=== PATIENT | female | born 1985 | race Caucasian/White ===

== ENCOUNTER 2022-09-07 18:49 | Observation (INO) | payer OTHER ==
[~2022-09-07] VITALS: Ht 160 cm; Wt 80.8 kg
[2022-09-07 19:55] LABS: Source, Urine Clean Catch
[2022-09-07 19:58] LABS: BASOPHILS ABSOLUTE AUTO 0.12 K/mm3 (0.00-0.23); BASOPHILS PERCENT AUTO 1 % (0-2); EOSINOPHILS ABSOLUTE AUTO 0.29 K/mm3 (0.00-0.68); EOSINOPHILS PERCENT AUTO 2 % (0-6); Hematocrit 38.1 % (33.0-51.0); Hemoglobin 12.9 g/dL (11.5-16.0); IMMATURE GRAN ABSOLUTE AUTO 0.04 K/mm3 (0.00-0.10); IMMATURE GRAN PERCENT AUTO 0 % (0-1); LYMPHOCYTES ABSOLUTE AUTO 4.44 K/mm3 (0.84-5.20); LYMPHOCYTES PERCENT AUTO 36 % (21-46); MONOCYTES ABSOLUTE AUTO 0.64 K/mm3 (0.16-1.47); MONOCYTES PERCENT AUTO 5 % (4-13); Mean Corpuscular HGB 30.3 pg (26.0-34.0); Mean Corpuscular HGB Conc 33.9 g/dL (31.5-36.5); Mean Corpuscular Volume 89 fL (80-100); Mean Platelet Volume 10.6 fL (9.1-12.4); NEUTROPHILS ABSOLUTE AUTO 6.93 K/mm3 (1.96-9.15); NEUTROPHILS PERCENT AUTO 56 % (41-73); Platelet Count 312 K/mm3 (150-400); RDW Coefficient Variation 12.9 % (11.7-14.2); RDW Standard Deviation 42.1 fL (35.1-46.3); Red Blood Cell Count 4.26 M/mm3 (3.80-5.20); White Blood Cell Count 12.46 K/mm3 (4.00-11.30)
[2022-09-07 20:00] LABS: Appearance, Urine Clear (Clear); Bilirubin, Urine Neg (Neg); Blood, Urine 1+ (Neg); Color, Urine Yellow (P-Yellow); Glucose Qualitative, Urine 4+ (Neg); Ketones, Urine Neg (Neg); Leukocyte Esterase, Urine Neg (Neg); Nitrite, Urine Neg (Neg); Protein, Urine Neg (Neg); Specific Gravity, Urine 1.015 (1.003-1.022); Urobilinogen, Urine NORM (Normal); pH, Urine 6.5 (5.0-8.0)
[2022-09-07 20:10] LABS: Albumin, Blood 3.8 g/dL (3.4-5.0); Bilirubin, Total 0.3 mg/dL (0.1-1.0); Bun/Creatinine Ratio 15.8 (12.0-20.0); Calcium, Blood 9.6 mg/dL (8.5-10.1); Creatinine, Blood 0.63 mg/dL (0.40-1.00); Globulin, Blood 3.7 g/dL (2.2-4.0); Total Protein, Blood 7.5 g/dL (6.4-8.2)
[2022-09-07 20:14] LABS: Bacteria Rare /hpf; Red Blood Cells, Urine 0-2 /hpf (0-2); Squamous Epithelial Cells Few /hpf (Few); White Blood Cells, Urine Not Seen /hpf (0-5)
[2022-09-07] MEDS ORDERED: LIPITOR80 MG (23:21)
[2022-09-07] MEDS ORDERED: ALOGLIPTIN25 M7 (23:21)
[2022-09-07] MEDS ORDERED: METFORMIN HCL500 M2 (23:21)
[2022-09-07] MEDS ORDERED: PROZAC40 MG (23:21)
[2022-09-07] MEDS ORDERED: GLIP5ER (23:22)
[2022-09-08] VITALS (19 sets, daily range): BP systolic 95–131; BP diastolic 50–79
--- NOTE | 2022-09-08 00:55 | NUR ---
PT ADMIT PT ARRIVED TO ROOM VIA GURNEY W/ SPOUSE AT BEDSIDE, REPORTS 5/10 PAIN. MEDICATED W/ DILAUDID AND ZOFRAN. ASSESSMENT CHARTED, PT REPORTS DIABETIC W/ ORAL MEDS, NEUROPATHY TO BLLE AND FINGER TIPS. VARIOUS PSORIASIS SPOTS TO ELBOW, KNEE, ABD. WILL MONITOR FOR PAIN, N/V AND MEDICATE PER EMAR. PLANS FOR SURGERY TOMORROW.
--- NOTE | 2022-09-08 05:52 | NUR ---
SHIFT SUMMARY ER ADMIT FOR CHOLECYSTITIS, AWAITING SURGERY. NPO. VSS, 06/24 PAIN W/ GOOD RESULTS W/ FENTANYL 2X THIS SHIFT. A&OX4, INDEPENDANT IN ROOM/ BATHROOM. PT REPORTS OCCASIONAL NAUSEA AND N/T R/T DIABETIC NEUROPATHY, TYPE 2. NO ORDERS FOR HOME MEDS. IV FLUIDS CONTINUED. NO ACUTE CHANGES THIS SHIFT. CALL LIGHT W/IN REACH. WILL REPORT OFF TO ONCOMING SHIFT.
--- NOTE | 2022-09-08 08:25 | NUR ---
PATIENT TO IMAGING VIA W/C FOR CT SCAN.
--- NOTE | 2022-09-08 08:30 | NUR ---
IGNITION SOURCES PATIENT DENIES ANY SOURCE OF IGNITION PRESENT AT THIS TIME. DISCUSSED FIRE SAFETY IN HOSPITAL, PATIENT VERBALIZES UNDERSTANDING.
--- NOTE | 2022-09-08 10:45 | NUR ---
CALL TO MD NOTIFIED MD OF PATIENT'S CODE STATUS IN THE COMPUETER APPEARING DNI, THIS RN VERIFIED WITH PATIENT THAT SHE DOES INDEED WISH TO BE A FULL CODE. TELEPHONE ORDER RECEIVED TO CHANGE PATIENT CODE STATUS TO FULL CODE.
--- NOTE | 2022-09-08 11:30 | NUR ---
FAMILY TO PATIENTS ROOM. ALL FAMILY DENIES ANY IGNITION SOURCES PRESENT AT THIS TIME. EDUCATED ON FIRE SAFETY IN HOSPITAL, VERBALIZES UNDERSTANDING.
--- NOTE | 2022-09-08 14:00 | NUR ---
PATIENT TO DAY SURGERY VIA [facility]
--- NOTE | 2022-09-08 15:28 | NUR ---
HOSPITALIST CONSULT THIS RN NOTIFIED DR OBRIEN OF NEW HOSPITALIST CONSULT TO MANAGE PANCREATITIS & DIABETES, PER NURSE NOTIFY BY DR GRANT.
--- NOTE | 2022-09-08 19:00 | NUR ---
RETURN FROM PACU PT RETURNED VIA MEGHAN [place] DRAIN TO RUQ DRAINING SEROSANGUINOUS. PT REPORTS 3/10 PAIN AT THIS TIME. VSS, LUNGS CLEAR ALTHOUGH VERY SHALLOW. EDUCATED TO DEEP BREATH. WILL PROVIDE INCENTIVE SPIR.
--- NOTE | 2022-09-08 19:10 | NUR ---
DR GRANT IN TO SEE PT PT AND FAMILY UPDATED OF PROCEDURES PREFORMED AND INFORMED WILL REEVALUATE IN A.M.
--- NOTE | 2022-09-08 19:30 | NUR ---
DR. WILDER IN ROOM DR WILDER IN TO SEE PT/ FAMILY. DISCUSSED CONCERNS OF DIABETES AND INFORMED OF ORDERS TO MONITOR CBG'S AND MEDS.
[2022-09-09 02:48] VITALS: BP 121/67
--- NOTE | 2022-09-09 06:30 | NUR ---
SHIFT SUMMARY POD 1, CHOLECYSTECTOMY W/ MEGHAN DRAIN IN RUQ W/ 4 LAP SITES C/D. PT CONTINUES TO BE 08/24 AND RECEIVED IV PAIN MEDS X3 THIS SHIFT. VSS, CGB'S Q6 W/ 2U HUMULIN ADMINISTERED @0600 PER LOW SS. NO C/O NAUSEA. PT CONTINUES TO HAVE SHALLOW BREATHING R/T PAIN AND EDUCATED ON DEEP BREATHING AND CONTINUE USE OF INCENTIVE SPIROMETER. PT AWAITING AMBULATION THIS A.M. IN HOPES OF DISCHARGE TODAY. SPOUSE IN ROOM W/ PT.
--- NOTE | 2022-09-09 06:39 | NUR ---
NEW IV PLACED IV PLACED TO TOP OF LEFT HAND BY FAVIOLA BENAVIDEZ.
[2022-09-09 07:58] VITALS: BP 90/56
[2022-09-09] MEDS ORDERED: OXAYDO5 M2 PO (09:10)
[2022-09-09 09:41] VITALS: BP 126/85
--- NOTE | 2022-09-09 11:24 | NUR ---
DISCHARGE NOTE: PATIENT AND SIGNIFICANT OTHER WERE EDUCATED ON DISCHARGE INSTRUCTIONS AND MEGHAN DRAIN INSTRUCTIONS. BOTH VERBALIZED UNDERSTANDING OF INSTRUCTIONS AND HAD NO FURTHER QUESTIONS AT THIS TIME. PAIN PERSCRIPTION HER SIGNIFICANT OTHER HAS ALREADY FILLED OUT AT THEIR PREFERRED PHARMACY. PAIN IS MANAGED WITH ORAL PAIN MEDICATIONS. IV WAS TAKEN OUT AND WNL. HER ABD HAS THE 4 LAP SITES WITH WOUND GLUE THAT ARE C/D/I. DENIES NAUSEA AND VOMITING. HER MEGHAN DRAIN HAS TEGADERM DRESSING WITH CHG THAT IS ALSO C/D/I. BULB IS COMPRESSED AND HAS A SMALL AMOUNT OF LIGHT PINK OUTPUT. PATIENT IS DRESSED AND HAS PERSONAL ITEMS IN THE ROOM GATHERED. SHE IS TOLERATING PO INTAKE AND IS VOIDING WELL PASSING GAS. SHE IS BEING WHEELCHAIRED OUT TO HER SIGNIFICANT OTHERS CAR WHO WILL BE TAKING HER HOME.
== END 2022-09-09 11:30 | disposition home or self-care (01) ==
LOC: ER 18:49 → SURS 18:50
PROVIDERS: Student in an Organized Health Care Education/Training Program; Surgery; ADMIT Surgery
PROC: BF121ZZ Fluoroscopy of Gallbladder using Low Osmolar Contrast (ICD-10-PCS; principal; 2022-09-08 14:00)
PROC: 8E0W4CZ Robotic Assisted Procedure of Trunk Region, Percutaneous Endoscopic Approach (ICD-10-PCS; principal; 2022-09-08 14:00)
PROC: 0FT44ZZ Resection of Gallbladder, Percutaneous Endoscopic Approach (ICD-10-PCS; principal; 2022-09-08 14:00)
DX: K80.00 Calculus of gallbladder with acute cholecystitis without obstruction (principal); E11.9 Type 2 diabetes mellitus without complications; Z72.0 Tobacco use; Z88.5 Allergy status to narcotic agent; Z88.8 Allergy status to other drugs, medicaments and biological substances; K85.90 Acute pancreatitis without necrosis or infection, unspecified; K42.0 Umbilical hernia with obstruction, without gangrene
CPT/HCPCS: 36415; 74177; 76705; 80053; 81001; 82947; 83690; 85025; 88304; 96361; 96365; 96375; 96376; 99285-25; A9270; G0378; J1100; J1170; J1815; J1885; J2405; J2543; J2704; J3010; J7030; J7120; Q9967

== ENCOUNTER 2022-09-09 19:15 | Emergency (ER) | payer OTHER ==
[~2022-09-09] VITALS: Ht 160 cm; Wt 108.9 kg
[~2022-09-09 19:15] MED LIST: ALOGLIPTIN25 M7; GLIP5ER; LIPITOR80 MG; METFORMIN HCL500 M2; OXAYDO5 M2 PO; PROZAC40 MG
[2022-09-09 19:52] LABS: BASOPHILS ABSOLUTE AUTO 0.06 K/mm3 (0.00-0.23); BASOPHILS PERCENT AUTO 1 % (0-2); EOSINOPHILS ABSOLUTE AUTO 0.06 K/mm3 (0.00-0.68); EOSINOPHILS PERCENT AUTO 1 % (0-6); Hematocrit 36.6 % (33.0-51.0); Hemoglobin 12.2 g/dL (11.5-16.0); IMMATURE GRAN ABSOLUTE AUTO 0.04 K/mm3 (0.00-0.10); IMMATURE GRAN PERCENT AUTO 0 % (0-1); LYMPHOCYTES ABSOLUTE AUTO 3.76 K/mm3 (0.84-5.20); LYMPHOCYTES PERCENT AUTO 31 % (21-46); MONOCYTES ABSOLUTE AUTO 0.78 K/mm3 (0.16-1.47); MONOCYTES PERCENT AUTO 7 % (4-13); Mean Corpuscular HGB 30.3 pg (26.0-34.0); Mean Corpuscular HGB Conc 33.3 g/dL (31.5-36.5); Mean Corpuscular Volume 91 fL (80-100); Mean Platelet Volume 9.9 fL (9.1-12.4); NEUTROPHILS ABSOLUTE AUTO 7.39 K/mm3 (1.96-9.15); NEUTROPHILS PERCENT AUTO 61 % (41-73); Platelet Count 298 K/mm3 (150-400); RDW Coefficient Variation 12.9 % (11.7-14.2); RDW Standard Deviation 42.8 fL (35.1-46.3); Red Blood Cell Count 4.02 M/mm3 (3.80-5.20); White Blood Cell Count 12.09 K/mm3 (4.00-11.30)
[2022-09-09 20:20] LABS: Albumin, Blood 3.3 g/dL (3.4-5.0); Albumin/Globulin Ratio 0.9 (0.8-1.8); Bilirubin, Total 0.3 mg/dL (0.1-1.0); Bun/Creatinine Ratio 17.1 (12.0-20.0); Calcium, Blood 8.3 mg/dL (8.5-10.1); Creatinine, Blood 0.7 mg/dL (0.40-1.00); Globulin, Blood 3.6 g/dL (2.2-4.0); Potassium, Blood 3.6 mmol/L (3.5-5.5); Total Protein, Blood 6.9 g/dL (6.4-8.2)
[2022-09-09 21:45] VITALS: BP 134/83
== END 2022-09-09 22:26 | disposition home or self-care (01) ==
LOC: ER 19:15
PROVIDERS: Physician Assistant
DX: R10.9 Unspecified abdominal pain (principal); Z90.49 Acquired absence of other specified parts of digestive tract; Z88.5 Allergy status to narcotic agent; Z88.8 Allergy status to other drugs, medicaments and biological substances; Z79.899 Other long term (current) drug therapy
CPT/HCPCS: 74177; 80053; 83690; 85025; A9270; J1885; J2405; Q9967

== ENCOUNTER → 2023-02-02 | Outpatient (CLI) | payer OTHER ==
[2023-02-17 12:58] LABS: HPV GENOTYPE 16 Not Detected; HPV GENOTYPE 18 Not Detected; HPV HIGH RISK Not Detected; HPV SOURCE Not Provided
== END ==
LOC: LAB 17:03 → LAB SHORT 17:03
PROVIDERS: Registered Nurse
DX: Z01.419 Encounter for gynecological examination (general) (routine) without abnormal findings (principal)
CPT/HCPCS: 87624; G0123

== ENCOUNTER 2024-06-01 13:09 | Emergency (ER) | payer OTHER ==
[~2024-06-01 13:09] MED LIST changes: +AMOX500 PO
== END 2024-06-01 13:58 | disposition left against medical advice (07) ==
LOC: ER 13:09
DX: R10.9 Unspecified abdominal pain (principal); Z53.21 Procedure and treatment not carried out due to patient leaving prior to being seen by health care provider

== ENCOUNTER → 2024-09-19 | Outpatient (CLI) | payer OTHER ==
[2024-09-19 09:33] LABS: BASOPHILS ABSOLUTE AUTO 0.06 K/mm3 (0.00-0.23); BASOPHILS PERCENT AUTO 1 % (0-2); EOSINOPHILS ABSOLUTE AUTO 0.10 K/mm3 (0.00-0.68); EOSINOPHILS PERCENT AUTO 1 % (0-6); Hematocrit 36.2 % (33.0-51.0); Hemoglobin 12.0 g/dL (11.5-16.0); IMMATURE GRAN ABSOLUTE AUTO 0.06 K/mm3 (0.00-0.10); IMMATURE GRAN PERCENT AUTO 1 % (0-1); LYMPHOCYTES ABSOLUTE AUTO 1.88 K/mm3 (0.84-5.20); LYMPHOCYTES PERCENT AUTO 16 % (21-46); MONOCYTES ABSOLUTE AUTO 1.06 K/mm3 (0.16-1.47); MONOCYTES PERCENT AUTO 9 % (4-13); Mean Corpuscular HGB Conc 33.1 g/dL (31.5-36.5); Mean Corpuscular Volume 89 fL (80-100); NEUTROPHILS ABSOLUTE AUTO 8.75 K/mm3 (1.96-9.15); NEUTROPHILS PERCENT AUTO 74 % (41-73); NRBC ABSOLUTE 0.00 K/mm3 (0.00-0.02); NRBC Auto 0.0 /100 WBC (0.0-0.2); Platelet Count 319 K/mm3 (150-400); RDW Coefficient Variation 13.1 % (11.7-14.2); RDW Standard Deviation 43.3 fL (35.1-46.3)
[2024-09-19 09:43] LABS: Alanine Aminotransfer (ALT/SGP 36.0 U/L (12-78); Albumin, Blood 3.2 g/dL (3.4-5.0); Albumin/Globulin Ratio 0.8 (0.8-1.8); Anion Gap 11.0 mmol/L (3-11); Aspartate Aminotrans (AST/SGOT 18.0 U/L (12-37); Bilirubin, Total 0.5 mg/dL (0.1-1.0); Blood Urea Nitrogen 10.0 mg/dL (8-24); CO2, Blood 28.0 mmol/L (21-32); Calcium, Blood 8.8 mg/dL (8.5-10.1); Chloride, Blood 103.0 mmol/L (98-108); Creatinine, Blood 0.7 mg/dL (0.40-1.00); Globulin, Blood 4.1 g/dL (2.2-4.0); Glucose, Blood 203.0 mg/dL (70-99); Potassium, Blood 4.0 mmol/L (3.5-5.5); Sodium, Blood 138.0 mmol/L (136-145); Total Protein, Blood 7.3 g/dL (6.4-8.2)
== END ==
LOC: LAB SHORT 09:29 → LAB 09:29
PROVIDERS: Family Medicine
DX: E11.9 Type 2 diabetes mellitus without complications (principal); Z79.4 Long term (current) use of insulin
CPT/HCPCS: 80053; 85025